=== PATIENT | female | born 1965 | race Caucasian/White ===

== ENCOUNTER 2017-05-19 22:39 | Emergency (ER) | payer OTHER ==
[2017-05-20] MEDS ORDERED: Clindamycin 600 MG IVPREMIX(* 600 MG in PREMIX* 0 ML IV ONE (01:15)
[2017-05-20 01:56] LABS: Hematocrit 32 % (35-47); Hemoglobin 10.4 g/dl (12.0-16.0); Mean Corpuscular HGB Conc 33 g/dl (31-36); Mean Corpuscular Hemoglobin 28 pg (27-31); Mean Corpuscular Volume 85 fL (80-97); Mean Platelet Volume 8 um3 (7.4-10.4); Red Blood Count 3.74 10^6/ul (4.0-5.4); Red Cell Distribution Width 14 % (10.5-15); White Blood Count 8.6 10^3/ul (3.5-10.8)
[2017-05-20 02:01] LABS: Urine Bilirubin Negative (Negative); Urine Glucose Negative (Negative); Urine Nitrite Negative (Negative)
[2017-05-20 02:11] LABS: Albumin 3.4 g/dL (3.2-5.2); BUN/Creatinine Ratio 15.9 (8-20); Calcium 8.9 mg/dL (8.6-10.3); EGFR African American 127.6 (>60); EGFR Non-African American 99.2 (>60); Globulin 3.3 g/dL (2-4); Potassium 3.8 mmol/L (3.5-5.0); Total Bilirubin 0.4 mg/dL (0.2-1.0); Total Protein 6.7 g/dL (6.4-8.9)
[2017-05-20] MEDS ORDERED: Clindamycin 600 MG IVPREMIX(* 600 MG/50 ML SDV ONE (02:12)
[2017-05-20 03:44] VITALS: BP 110/67
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
== END 2017-05-20 03:35 | disposition home or self-care (01) ==
LOC: ED 22:39
DX: I82.4Z2 Acute embolism and thrombosis of unspecified deep veins of left distal lower extremity (principal); L03.116 Cellulitis of left lower limb; Z96.642 Presence of left artificial hip joint
CPT/HCPCS: 36415; 80053; 81003; 83605; 85025; 85610; 85730; 87040; 99283

== ENCOUNTER 2018-06-27 08:40 | Emergency (ER) | payer OTHER ==
[2018-06-27] MEDS ORDERED: Aspirin 81 mg CHEW TAB* 81 MG TAB.CHEW PO ONE (09:02)
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
[2018-06-27 09:26] LABS: INR 1.39 (0.77-1.02)
[2018-06-27 09:27] LABS: ABS Basophils 0.1 10^3/ul (0-0.2); ABS Eosinophils 0.2 10^3/ul (0-0.6); ABS Lymphocytes 1.8 10^3/ul (1.0-4.8); ABS Monocytes 0.4 10^3/ul (0-0.8); ABS Neutrophils 5.4 10^3/ul (1.5-7.7); ABS Nucleated RBC 0 10^3/ul; Eosinophil % 2.9 % (0-6); Hematocrit 44 % (35-47); Hemoglobin 14.9 g/dl (12.0-16.0); Lymphocyte % 22.7 % (25-47); Mean Corpuscular HGB Conc 34 g/dl (31-36); Mean Corpuscular Hemoglobin 29 pg (27-31); Mean Corpuscular Volume 86 fL (80-97); Mean Platelet Volume 8.8 um3 (7.4-10.4); Nucleated Red Blood Cells % 0.2; Platelet Count 217 10^3/ul (150-450); Red Blood Count 5.06 10^6/ul (4.00-5.40); Red Cell Distribution Width 14 % (10.5-15); White Blood Count 7.9 10^3/ul (3.5-10.8)
[2018-06-27 09:39] LABS: EGFR Non-African American 70.9 (>60)
--- NOTE | 2018-06-27 09:43 | RAD ---
HISTORY: CP COMPARISONS: August 14, 2014 VIEWS: 1: frontal AP view of the chest at 9:20 AM FINDINGS: LINES AND TUBES: None. CARDIOMEDIASTINAL SILHOUETTE: The cardiomediastinal silhouette is normal for portable technique. PLEURA: The costophrenic angles are sharp. No pleural abnormalities are noted. LUNG PARENCHYMA: The lungs are clear. ABDOMEN: The upper abdomen is clear. There is no subphrenic gas. BONES AND SOFT TISSUES: The patient is status post anterior cervical fusion. IMPRESSION: NO ACTIVE CARDIOPULMONARY DISEASE.
--- NOTE | 2018-06-27 11:54 | RAD ---
Indication: Right upper quadrant pain real-time sonography of the right upper quadrant was performed. Liver is normal in size. No intrahepatic duct dilatation is noted. Hyperechoic lesion in the inferior right lobe of liver is noted measuring 0.9 x 0.6 x 0.6 cm consistent with a small hemangioma. No other focal lesions are identified. The gallbladder demonstrates no gallstones, pericholecystic fluid or wall thickening. The right kidney measures 11.4 x 5.5 x 5.7 cm with no hydronephrosis. Pancreas head, neck and proximal body demonstrates no mass or pancreatic duct dilatation. Aorta and inferior vena cava are unremarkable. IMPRESSION: Hyperechoic lesion right lobe of liver measuring 9 x 6 x 6 mm consistent with a hemangioma. No biliary duct dilatation or cholelithiasis is noted.
[2018-06-27 13:11] VITALS: BP 119/75
--- NOTE | 2018-06-27 21:39 | CONS ---
CC: Dr. Guillaume * CONSULTATION REPORT: DATE OF CONSULTATION: 06/27/18 PRIMARY CARE PROVIDER: Dr. Guillaume. CHIEF COMPLAINT: Abdominal pain, vomiting, and right-sided chest and neck pain. HISTORY OF PRESENT ILLNESS: Ms. Jones is a 53-year-old female who has a history of DVT x2 on lifelong Xarelto therapy and gluten intolerance who presents to the emergency room with complaints of abdominal pain, vomiting, and right-sided chest and neck pain. The patient states that over the last couple weeks, she has been having intermittent episodes of right-sided chest and neck pain. This is not necessarily associated with anything in particular. She cannot always correlate it to food or with exertion. It just seems to happen randomly. She had no associated symptoms with this. On this past Wednesday, the patient states that she vomited "all day long." On the following, she was driving to work and she developed this chest pain that she had been having off and on over the last couple of weeks. She carries a history of gluten intolerance and because of that she examined her diet. She realized that she had been cheating on her diet and eating gluten. She therefore cut it out. She then had dinner last evening, which consisted of cube steak, potatoes , and corn and following that she felt quite hot. At approximately midnight on the morning of consultation, she again began to vomit. She also complains of right upper quadrant abdominal pain with this. She has had no fevers and no chills. She denies any burning in her chest. She does state that she has had a lot of indigestion recently. She has no recent sick contacts. The patient presented to the emergency room for evaluation of the vomiting and abdominal pain, but while here also mentioned the fact that she had been having chest discomfort and therefore the hospitalist service was asked to evaluate the patient. PAST MEDICAL HISTORY: 1. History of DVT x2. 2. Gluten intolerance. PAST SURGICAL HISTORY: 1. Hysterectomy. 2. Multiple ankle surgeries resulting in bilateral ankle fusions. 3. Cervical fusion. 4. Left total hip arthroplasty. MEDICATIONS: 1. Xyzal 5 mg p.o. q.h.s. 2. Vitamin D3 1 tab p.o. daily. 3. Vitamin B12 1 tab p.o. daily. 4. VESIcare 10 mg p.o. daily. 5. Xarelto 20 mg p.o. daily. 6. Celebrex 200 mg p.o. daily p.r.n. pain. ALLERGIES: DEMEROL. FAMILY HISTORY: Mother is living, she is 74, has a history of RA, lung cancer, diabetes, and hyperlipidemia. Dad's history is unknown. SOCIAL HISTORY: The patient is a lifelong nonsmoker. She does not drink alcohol. She works in [employer] at [employer]. She is . She has 2 children. She states that her children, specifically her son, Vela would be her healthcare proxy as he is a PA. REVIEW OF SYSTEMS: A complete 11-system review of systems is obtained. Pertinent positives and negatives are as per HPI and in addition, the patient does admit to depression and anxiety recently related to issues with one of her sons. PHYSICAL EXAMINATION: Blood pressure 119/75, pulse 74, respirations 20, temp 98.2, O2 sat 95% on room air. General: The patient is a well-developed, obese , middle- aged female, seen sitting up in the bed, in no acute distress. HEENT : Pupils are equal and round. Extraocular muscles are intact. Oropharynx is clear. Oral mucosa is moist. There is no submandibular, cervical, or supraclavicular adenopathy. Cardiac: Normal S1, S2. Regular rate and rhythm. I do not appreciate any murmurs. Pulmonary: Lungs are clear to auscultation bilaterally. Abdomen: Bowel sounds are present. Abdomen is soft, nondistended. She is mildly tender to palpation in the right upper quadrant. Musculoskeletal: There is no cyanosis, clubbing of the digits. There is full active range of motion of all 4 extremities. Skin is warm and dry. There are no rashes. Neuro: Cranial nerves II through XII are grossly intact. Sensation is intact to light touch throughout. Strength is 5/5 and symmetric in both upper and lower extremities bilaterally. Psych: The patient is alert. She is oriented x3. Affect appears appropriate. LABORATORY DATA/DIAGNOSTIC STUDIES: Labs, WBC 7.9, hemoglobin 14.9, hematocrit 44, platelets 217. INR 1.39. D-dimer less than 200. Sodium 140, potassium 3.8 , chloride 106, CO2 28, BUN 10, creatinine 0.84, glucose 111. Lactic acid 0.7. Calcium 8.9. Bilirubin 0.6, AST 16, ALT 19, alk phos 40. Troponin 0.0 x2. BNP 32. Albumin 4.0. TSH 1.29. EKG reveals normal sinus rhythm without any acute ST-T wave abnormalities. There are possibly Q waves in the inferior leads. Chest x-ray, no active cardiopulmonary disease is noted. Gallbladder ultrasound, hyperechoic lesion in the right lobe of the liver measuring 9 x 6 x 6 mm consistent with a hemangioma. ASSESSMENT AND PLAN: Ms. Jones is a 53-year-old female with past medical history most significant for deep vein thrombosis x2 who presented to the emergency room with complaints of right upper quadrant abdominal pain, vomiting , and right-sided chest and neck pain. 1. Chest pain. At this point, the patient's chest pain sounds quite atypical and that it is right-sided and it occurs really at anytime. The patient has a WENDY risk score of 1 due to having multiple episodes of chest discomfort. At this point, as her story is quite atypical, I feel that she can be discharged home from the emergency room and have an outpatient stress test. I have contacted the cardiac nurses and confirmed that I can order this and I have done so. The patient will be set up for a stress test in the next 24 to 48 hours. 2. Abdominal pain and vomiting. The patient's symptoms are concerning for biliary colic. The patient has no evidence of acute cholecystitis on gallbladder ultrasound. The patient has been instructed to eat a low fat or fat -free diet and scheduled an appointment with General Surgery to be evaluated for possible elective cholecystectomy for possible biliary colic. 3. History of deep vein thrombosis x2. The patient will continue on Xarelto. 4. The patient has been instructed to return to the emergency room if any of her pain symptoms change quality or become more intense or longer lasting. The patient understands this recommendation and will do so. TIME SPENT: 65 minutes were spent on this consultation. [id number]/[facility] #: [id number] [place]ENN[place]
== END 2018-06-27 13:10 | disposition short-term general hospital (02) ==
LOC: ED 08:40
DX: R07.9 Chest pain, unspecified (principal); Z86.718 Personal history of other venous thrombosis and embolism
CPT/HCPCS: 36415; 71045; 76705; 80053; 83605; 83880; 84436; 84443; 84484; 85025; 85379; 85610; 93005; 99283; A9270-GY

== ENCOUNTER → 2019-01-16 12:29 | Emergency (ER) | payer OTHER ==
[~2019-01-16 12:29] MED LIST: Diazepam TAB(*) 5 MG PO ONE; HYDROcodone/ACETAMIN 5-325 MG* 1 TAB PO ONE
[2019-01-16 15:26] VITALS: BP 130/77
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
== END | disposition home or self-care (01) ==
LOC: ED 12:29
DX: S39.012A Strain of muscle, fascia and tendon of lower back, initial encounter (principal); X50.0XXA Overexertion from strenuous movement or load, initial encounter; M46.1 Sacroiliitis, not elsewhere classified; Z88.8 Allergy status to other drugs, medicaments and biological substances; M43.17 Spondylolisthesis, lumbosacral region; Z96.642 Presence of left artificial hip joint
CPT/HCPCS: 72110; 99281; A9270-GY